=== PATIENT | female | born 1935 | race Caucasian/White ===

== ENCOUNTER 2019-12-11 17:18 | Inpatient (IN) | payer MEDICARE, BC ==
[2019-12-11] MEDS ORDERED: ACETAMINOPHEN TAB 500 MG TAB PO STA (17:30)
[2019-12-11] MEDS ORDERED: DIPH,PERTUS(ACELL)TETVAC-LF 0.5 ML VIAL IM ONE (17:32)
--- NOTE | 2019-12-11 18:04 | ED ---
General Adult HPI - General Chief complaint: Weakness Stated complaint: General weakness Time Seen by Provider: 12/11/19 17:21 Source: patient, EMS, RN notes reviewed Mode of arrival: EMS Limitations: altered mental status - History of Present Illness Initial comments: Patient is a pleasant 84-year-old female presenting to the emergency department with general weakness. Patient has had several falls recently. Patient did get up any breakfast morning however has been in bed fatigued otherwise today. Patient is a poor historian and offers little history. Majority of history is taken by EMS. Per EMS patient has a history of urinary tract infections. Patient has problems identifying specific complaints. Patient did roll out of bed prior to arrival and struck the right side of her face on her nightstand. - Related Data Home Medications Medication Instructions Recorded Confirmed ALPRAZolam [Xanax] 0.25 mg PO BID 05/15/16 05/17/16 Albuterol Sulfate [Proair Hfa] 1 - 2 puff INHALATION Q6HR PRN 05/15/16 05/17/16 Alendronate Sodium [Fosamax] 35 mg PO Q7D 05/15/16 05/17/16 Atorvastatin Calcium [Lipitor] 20 mg PO HS 05/15/16 05/17/16 Calcium Carb-Vit D 500Mg-200Un 1 tab PO DAILY 05/15/16 05/17/16 [Oscal 500+D] Cholecalciferol [Vitamin D3] 2,000 unit PO DAILY 05/15/16 05/17/16 Erythromycin Ophth Oint [Romycin 1 applic BOTH EYES QID PRN 05/15/16 05/17/16 Ophth Oint] Furosemide [Lasix] 40 mg PO DAILY 05/15/16 05/17/16 Ipratropium-Albuterol Nebulize 1 neb INHALATION QID PRN 05/15/16 05/17/16 [Duoneb 0.5 mg-3 mg/3 ml Soln] Metoprolol Tartrate [Lopressor] 50 mg PO BID 05/15/16 05/17/16 Pantoprazole [Protonix] 40 mg PO DAILY 05/15/16 05/17/16 [place] HCl [Salagen] 7.5 mg PO DAILY 05/15/16 05/17/16 Potassium Chloride [K-Tab ER] 20 meq PO DAILY 05/15/16 05/17/16 Propylene Glycol/Peg 400/Pf 1 each OP DAILY 05/15/16 05/17/16 [Systane 0.3-0.4% Eye Drops] Rivaroxaban [Xarelto] 15 mg PO DAILY 05/15/16 05/17/16 Spironolactone [Aldactone] 25 mg PO DAILY 05/15/16 05/17/16 cycloSPORINE [Restasis] 1 applicator BOTH EYES DAILY 05/15/16 05/17/16 prednisoLONE ACETATE 1% OPHTH 1 drops BOTH EYES Q4HR PRN 05/15/16 05/17/16 [Pred Forte 1%] rOPINIRole HCL [Requip] 1 mg PO HS 05/15/16 05/17/16 traMADol HCL [Ultram] 1 tab PO BID 05/15/16 05/17/16 Allergies Allergy/AdvReac Type Severity Reaction Status Date / Time atenolol Allergy Rash/Hives Verified 05/15/16 13:04 bisacodyl Allergy Rash/Hives Verified 05/15/16 13:04 doxycycline Allergy Rash/Hives Verified 05/15/16 13:04 duloxetine HCl Allergy Rash/Hives Verified 05/15/16 13:04 [From Cymbalta] gabapentin Allergy Rash/Hives Verified 05/15/16 13:04 meperidine HCl [From Demerol] Allergy Rash/Hives Verified 05/15/16 13:04 polyethylene glycol 3350 Allergy Rash/Hives Verified 05/15/16 13:04 [From Halflytely-Bisacodyl w-Flav Pk] potassium chloride Allergy Rash/Hives Verified 05/15/16 13:04 [From Halflytely-Bisacodyl w-Flav Pk] prednisone Allergy Rash/Hives Verified 05/15/16 13:04 promethazine HCl Allergy Rash/Hives Verified 05/15/16 13:05 [From Phenergan] propranolol HCl Allergy Rash/Hives Verified 05/15/16 13:05 [From Inderal LA] sertraline HCl [From Zoloft] Allergy Rash/Hives Verified 05/15/16 13:05 sodium bicarbonate Allergy Rash/Hives Verified 05/15/16 13:04 [From Halflytely-Bisacodyl w-Flav Pk] sodium chloride Allergy Rash/Hives Verified 05/15/16 13:04 [From Halflytely-Bisacodyl w-Flav Pk] sulfacetamide Allergy Rash/Hives Verified 05/15/16 13:04 valacyclovir HCl Allergy Rash/Hives Verified 05/15/16 13:05 [From Valtrex] Review of Systems ROS Statement: Those systems with pertinent positive or pertinent negative responses have been documented in the HPI. ROS Other: All systems not noted in ROS Statement are negative. Limitations: ROS unobtainable due to patients medical condition Past Medical History Past Medical History: Atrial Fibrillation, Cancer, COPD, CVA/TIA, Deep Vein Thrombosis (DVT), Fibromyalgia, GERD/Reflux, Hypertension, Osteoarthritis (OA) Additional Past Medical History / Comment(s): Tinea Cruris, Tietze's Disease, Sjogren's Syndrome, Hx of TIA's & DVT. History of Any Multi-Drug Resistant Organisms: None Reported Past Surgical History: Breast Surgery, Section, Joint Replacement, Orthopedic Surgery Additional Past Surgical History / Comment(s): Mitral Valve replacement, Hip Replacement, skin cancer, Arthroscopic Knee surgery, Breast bx. Past Anesthesia/Blood Transfusion Reactions: No Reported Reaction Past Psychological History: No Psychological Hx Reported Smoking Status: Never smoker Past Alcohol Use History: None Reported Past Drug Use History: None Reported - Past Family History Mother Family Medical History: Cancer Additional Family Medical History / Comment(s): Unknown General Exam Limitations: altered mental status General appearance: alert, in no apparent distress Head exam: Present: other (Right-sided facial ecchymosis) Eye exam: Present: normal appearance, PERRL ENT exam: Present: normal oropharynx Neck exam: Present: normal inspection. Absent: tenderness, meningismus Respiratory exam: Present: normal lung sounds bilaterally Cardiovascular Exam: Present: regular rate, normal rhythm GI/Abdominal exam: Present: soft. Absent: tenderness Extremities exam: Present: normal inspection Neurological exam: Present: alert. Absent: motor sensory deficit Expanded Neurological exam: Present: protecting the airway Patient oriented to: Present: person. Absent: place, time Motor strength exam: RUE: 5, LUE: 5, RLE: 5, LLE: 5 Eye Response: (4) open spontaneously Motor Response: (6) obeys commands Verbal Response: (4) confused conversation Psychiatric exam: Present: flat affect Skin exam: Present: normal color Course Vital Signs 12/11/19 12/11/19 12/11/19 17:20 17:51 18:00 Temperature 88.5 F L 89.6 F L Pulse Rate 45 L 43 L 44 L Respiratory 20 20 20 Rate Blood Pressure 146/125 152/88 105/46 O2 Sat by Pulse 99 96 100 Oximetry 12/11/19 19:31 Temperature 91 F L Pulse Rate 46 L Respiratory 20 Rate Blood Pressure 115/53 O2 Sat by Pulse 95 Oximetry EKG Findings - EKG Comments: EKG Findings:: Sinus bradycardia at 46. For screening AV block with [place] of 252. QRS 78. QTC 572. QTC 500. Normal axis. Normal QRS. No acute ST change. Procedures - Laceration Laceration #1 Consent Obtained: verbal consent Indication: laceration Site: eyelid (Right upper eyelid) Size (cm): 3 Description: linear Depth: simple, single layer Pre-repair: wound explored, irrigated extensively Type of Sutures: other (Closed with Dermabond) Medical Decision Making - Medical Decision Making Patient evaluated. Patient and family updated. Case discussed with Dr. Harris, who will admit covered for Dr. Longoria. - Lab Data Result diagrams: 12/11/19 17:49 12/11/19 17:49 Lab Results 12/11/19 12/11/19 12/11/19 Range/Units 17:49 17:49 17:49 WBC 4.4 (3.8-10.6) k/uL RBC 4.53 (3.80-5.40) m/uL Hgb 14.0 (11.4-16.0) gm/dL Hct 42.7 (34.0-46.0) % MCV 94.4 (80.0-100.0) fL MCH 31.0 (25.0-35.0) pg MCHC 32.8 (31.0-37.0) g/dL RDW 13.4 (11.5-15.5) % Plt Count 154 (150-450) k/uL Neutrophils % 65 % Lymphocytes % 20 % Monocytes % 7 % Eosinophils % 2 % Basophils % 3 % Neutrophils # 2.9 (1.3-7.7) k/uL Lymphocytes # 0.9 L (1.0-4.8) k/uL Monocytes # 0.3 (0-1.0) k/uL Eosinophils # 0.1 (0-0.7) k/uL Basophils # 0.1 (0-0.2) k/uL PT (9.0-12.0) sec INR (<1.2) APTT (22.0-30.0) sec Sodium 140 (137-145) mmol/L Potassium 5.3 H (3.5-5.1) mmol/L Chloride 105 (98-107) mmol/L Carbon Dioxide 30 (22-30) mmol/L Anion Gap 5 mmol/L BUN 39 H (7-17) mg/dL Creatinine 1.32 H (0.52-1.04) mg/dL Est GFR (CKD-EPI)AfAm 43 (>60 ml/min/1.73 sqM) Est GFR (CKD-EPI)NonAf 37 (>60 ml/min/1.73 sqM) Glucose 93 (74-99) mg/dL Plasma Lactic Acid Parth 1.2 (0.7-2.0) mmol/L Calcium 9.0 (8.4-10.2) mg/dL Total Bilirubin 0.6 (0.2-1.3) mg/dL AST 81 H (14-36) U/L ALT 93 H (4-34) U/L Alkaline Phosphatase 152 H (38-126) U/L Creatine Kinase 145 H (30-135) U/L Troponin I (0.000-0.034) ng/mL Total Protein 6.8 (6.3-8.2) g/dL Albumin 3.7 (3.5-5.0) g/dL Urine Color Urine Appearance (Clear) Urine pH (5.0-8.0) Ur Specific [place] (1.001-1.035) Urine Protein (Negative) Urine Glucose (UA) (Negative) Urine Ketones (Negative) Urine Blood (Negative) Urine Nitrite (Negative) Urine Bilirubin (Negative) Urine Urobilinogen (<2.0) mg/dL Ur Leukocyte Esterase (Negative) Urine RBC (0-5) /hpf Urine WBC (0-5) /hpf Urine Bacteria (None) /hpf Hyaline Casts (0-2) /lpf 12/11/19 12/11/19 12/11/19 Range/Units 17:49 17:49 18:49 WBC (3.8-10.6) k/uL RBC (3.80-5.40) m/uL Hgb (11.4-16.0) gm/dL Hct (34.0-46.0) % MCV (80.0-100.0) fL MCH (25.0-35.0) pg MCHC (31.0-37.0) g/dL RDW (11.5-15.5) % Plt Count (150-450) k/uL Neutrophils % % Lymphocytes % % Monocytes % % Eosinophils % % Basophils % % Neutrophils # (1.3-7.7) k/uL Lymphocytes # (1.0-4.8) k/uL Monocytes # (0-1.0) k/uL Eosinophils # (0-0.7) k/uL Basophils # (0-0.2) k/uL PT 11.4 (9.0-12.0) sec INR 1.1 (<1.2) APTT 30.4 H (22.0-30.0) sec Sodium (137-145) mmol/L Potassium (3.5-5.1) mmol/L Chloride (98-107) mmol/L Carbon Dioxide (22-30) mmol/L Anion Gap mmol/L BUN (7-17) mg/dL Creatinine (0.52-1.04) mg/dL Est GFR (CKD-EPI)AfAm (>60 ml/min/1.73 sqM) Est GFR (CKD-EPI)NonAf (>60 ml/min/1.73 sqM) Glucose (74-99) mg/dL Plasma Lactic Acid Parth (0.7-2.0) mmol/L Calcium (8.4-10.2) mg/dL Total Bilirubin (0.2-1.3) mg/dL AST (14-36) U/L ALT (4-34) U/L Alkaline Phosphatase (38-126) U/L Creatine Kinase (30-135) U/L Troponin I <0.012 (0.000-0.034) ng/mL Total Protein (6.3-8.2) g/dL Albumin (3.5-5.0) g/dL Urine Color Light Yellow Urine Appearance Clear (Clear) Urine pH 5.5 (5.0-8.0) Ur Specific [place] 1.012 (1.001-1.035) Urine Protein Negative (Negative) Urine Glucose (UA) Negative (Negative) Urine Ketones Negative (Negative) Urine Blood Negative (Negative) Urine Nitrite Positive H (Negative) Urine Bilirubin Negative (Negative) Urine Urobilinogen <2.0 (<2.0) mg/dL Ur Leukocyte Esterase Moderate H (Negative) Urine RBC 1 (0-5) /hpf Urine WBC 33 H (0-5) /hpf Urine Bacteria Rare H (None) /hpf Hyaline Casts 6 H (0-2) /lpf - Radiology Data Radiology results: report reviewed (Scan the brain and cervical spine shows no acute process), image reviewed (Chest x-ray shows no acute process, improvement of previous pleural effusions. X-ray right tib-fib and right hand show no acute process) Disposition Clinical Impression: Dehydration, Urinary tract infection, Eyebrow laceration Disposition: ADMITTED IP TO THIS HOSP Is patient prescribed a controlled substance at d/c from ED?: No Referrals: Jesus Longoria MD [Primary Care Provider] - 1-2 days Decision Time: 19:50
[2019-12-11 18:25] LABS: Basophils # (A) 0.1 k/uL (0-0.2); Basophils % (A) 3 %; Eosinophils # (A) 0.1 k/uL (0-0.7); Eosinophils % (A) 2 %; HCT 42.7 % (34.0-46.0); Lymphocytes # (A) 0.9 k/uL (1.0-4.8); Lymphocytes % (A) 20 %; MCHC 32.8 g/dL (31.0-37.0); MCV 94.4 fL (80.0-100.0); Monocytes # (A) 0.3 k/uL (0-1.0); Monocytes % (A) 7 %; Neutrophils # (A) 2.9 k/uL (1.3-7.7); Neutrophils % (A) 65 %; Platelet Count 154 k/uL (150-450); RBC 4.53 m/uL (3.80-5.40); RDW 13.4 % (11.5-15.5); WBC 4.4 k/uL (3.8-10.6)
[2019-12-11] MEDS ORDERED: TOPICAL SKIN ADHESIVE 1 EACH AMP TOPICAL ONE (18:27)
[2019-12-11 18:37] LABS: INR 1.1 (<1.2); Partial Thromboplastin Time 30.4 sec (22.0-30.0); Prothrombin Time 11.4 sec (9.0-12.0)
[2019-12-11 18:44] LABS: Albumin 3.7 g/dL (3.5-5.0); Potassium 5.3 mmol/L (3.5-5.1); Total Bilirubin 0.6 mg/dL (0.2-1.3); Total Protein 6.8 g/dL (6.3-8.2)
--- NOTE | 2019-12-11 19:10 | CT ---
EXAMINATION TYPE: CT brain susanne wo con DATE OF EXAM: 12/11/2019 COMPARISON: CT brain 04/23/2013 HISTORY: Falls. Headache. Neck pain. CT DLP: 1397.1 mGycm Automated exposure control for dose reduction was used. Multiple axial sections were obtained of the brain without contrast. Multiple axial sections were obt ained from the skull base to T1 vertebra without contrast. FINDINGS: There is cerebral cortical atrophy. There is no mass effect nor midline shift. There is no sign of in tracranial hemorrhage. The calvarium is intact. There is no evidence of cerebral edema. The cervical vertebra show disc space narrowing from C3 to C7 with spurring of the endplates. Facet j oints are intact. There is no compression fracture. The skull base is intact. IMPRESSION: Multilevel spondylotic changes in the cervical spine. No fracture. Cerebral atrophy. No acute intracranial abnormality. No significant change compared to old exam.
--- NOTE | 2019-12-11 19:12 | XR ---
EXAMINATION TYPE: XR hand complete RT DATE OF EXAM: 12/11/2019 COMPARISON: NONE HISTORY: Pain TECHNIQUE: 3 views FINDINGS: Metacarpals are intact. I see no fracture nor dislocation. There is extensive hypertrophic osteoarthritis in the IP joints of all of the digits. The carpal bones are intact. There is narrowing of the radiocarpal joint space. I see no fracture. There is no subluxation. There are no erosions. IMPRESSION: Multiple areas of osteoarthritis. No definite sign of inflammatory arthritis. No acute pratibha ny abnormality.
--- NOTE | 2019-12-11 19:14 | XR ---
EXAMINATION TYPE: XR tibia fibula RT DATE OF EXAM: 12/11/2019 COMPARISON: NONE HISTORY: Pain TECHNIQUE: 3 views FINDINGS: There is subcutaneous edema around the lower leg. Tibia and fibula appear intact. I see no definite fracture. There is slight irregular appearance of the medial tibial condyle on the frontal v iew. IMPRESSION: No displaced fracture seen. Medial tibial condyle fracture cannot be entirely excluded. K nee x-rays would be helpful for for evaluation if clinically indicated. Subcutaneous edema.
[2019-12-11] MEDS ORDERED: ACETAMINOPHEN SUPPOSITORY 650 MG SUPP RECTAL STA (19:15)
[2019-12-11] MEDS: SODIUM CHLORIDE 0.9% 1,000 ML IV SCH (19:20)
[2019-12-11 19:23] LABS: Appearance,Urine Clear (Clear); Bacteria,Urine Rare /hpf; Bilirubin,Urine Negative (Negative); Blood,Urine Negative (Negative); Color,Urine Light Yellow; Glucose,Urine (UA) Negative (Negative); Hyaline Casts,Urine 6 /lpf (0-2); Ketones,Urine Negative (Negative); Leukocyte Esterase,Urine Moderate (Negative); Nitrite,Urine Positive (Negative); PH, Urine 5.5 (5.0-8.0); Protein,Urine Negative (Negative); RBC,Urine 1 /hpf (0-5); Specific Gravity,Urine 1.012 (1.001-1.035); Urobilinogen,Urine <2.0 mg/dL (<2.0); WBC,Urine 33 /hpf (0-5)
--- NOTE | 2019-12-11 19:23 | XR ---
EXAMINATION TYPE: XR chest 2V DATE OF EXAM: 12/11/2019 COMPARISON: 05/05/2013 HISTORY: Fever TECHNIQUE: FINDINGS: There are sternal wires. There is coarse interstitial density in the lungs. There is slight blunting of the costophrenic angles. There is no pulmonary consolidation. IMPRESSION: There is improvement in the pleural effusions compared to last exam that could relate to some improvement of mild heart failure. No pulmonary consolidation. There could be very minimal heart failure.
[2019-12-11] MEDS ORDERED: NALOXONE 0.4 MG/ML 1 ML VIAL IV PRN (20:12)
[2019-12-11] MEDS ORDERED: ACETAMINOPHEN TAB 325 MG TAB PO PRN (20:12)
[2019-12-12] MEDS: SODIUM CHLORIDE 0.9% 1,000 ML IV SCH ×2 (03:29→08:49)
[2019-12-12 06:07] LABS: Basophils % (A) 0 %; Eosinophils % (A) 1 %; HGB 12.8 gm/dL (11.4-16.0); Lymphocytes # (A) 0.5 k/uL (1.0-4.8); Lymphocytes % (A) 7 %; MCH 30.7 pg (25.0-35.0); MCHC 32.7 g/dL (31.0-37.0); Mean Platelet Volume 9.1; Monocytes # (A) 0.4 k/uL (0-1.0); Monocytes % (A) 5 %; Neutrophils # (A) 5.7 k/uL (1.3-7.7); Neutrophils % (A) 86 %; Platelet Count 142 k/uL (150-450); RBC 4.15 m/uL (3.80-5.40); WBC 6.7 k/uL (3.8-10.6)
[2019-12-12 06:30] LABS: Albumin 3.2 g/dL (3.5-5.0); Calcium 8.2 mg/dL (8.4-10.2); Potassium 4.7 mmol/L (3.5-5.1); Total Bilirubin 0.5 mg/dL (0.2-1.3); Total Protein 6.2 g/dL (6.3-8.2)
[2019-12-12] MEDS ORDERED: NYSTATIN 100,000UNIT/GM CREAM 30 GM TUBE TOPICAL PRN (11:49)
[2019-12-12] MEDS ORDERED: ALBUTEROL INHALER 60 PUFF/8 GM INHALER INHALATION PRN (11:49)
[2019-12-12] MEDS ORDERED: IPRATROPIUM-ALBUTEROL 3 ML NEB INHALATION PRN (11:49)
[2019-12-12] MEDS ORDERED: FUROSEMIDE 40 MG TAB PO SCH (12:00)
[2019-12-12] MEDS ORDERED: POTASSIUM CHLORIDE ER 20 MEQ TAB.ER PO SCH (12:00)
[2019-12-12] MEDS ORDERED: SPIRONOLACTONE 25 MG TAB PO SCH (12:00)
[2019-12-12] MEDS: METOPROLOL TARTRATE 50 MG TAB PO SCH ×2 (12:37→21:57)
[2019-12-12] MEDS: CITALOPRAM HYDROBROMIDE 20 MG TAB PO SCH (12:37)
[2019-12-12] MEDS: CALCIUM CARB-VIT D 500MG-200UN 1 EACH TAB PO SCH (12:38)
--- NOTE | 2019-12-12 15:22 | P.HPIM ---
History of Present Illness H&P Date: 12/12/19 Chief Complaint: Falls History of presenting complaint: This is a pleasant 89-year-old patient of Dr. Longoria. history is hoping by the daughter the bedside. Because of dementia patient is a limited historian. Chronic stable medical conditions include atrial fibrillation, COPD, fibromyalgia, hypertension, osteoarthritis, Sjogren syndrome. Patient lives with her daughter and son-in-law. Has of advanced dementia. Able to feed herself. Patient is incontinent. Able to get around the house. Recently is becoming more unsteady. Patient also had long-standing tremors. Patient may quite often gets agitated. Yesterday patient fell at least to 3 times. Including yesterday she took a fall when she hit the nightstand injuring her right forehead and eyelid and periorbital bruising occurred. Patient also got bruising on her hands. Patient's temperature also was running low. Was slightly bradycardic. Patient's found to be UTI the ER started and IV ceftriaxone. Patient was hypothermic. Patient always feels a bit cold. Patient is Dr. Sheridan is present Review of systems: GEN.: Tired EYES: Bruising around the right eye HEENT: None NECK: None RESPIRATORY: None CARDIOVASCULAR: None GASTROINTESTINAL: Incontinent GENITOURINARY: Incontinent MUSCULOSKELETAL: Joint pains LYMPHATICS: None HEMATOLOGICAL: None PSYCHIATRY: [Forgetful NEUROLOGICAL: Tremors.. Social history: No history of smoking. Drinks at also point daily. Lives with her daughter Arvin and her . Physical examination: VITAL SIGNS: Temperature 88.5, heart rate 45, respiration 20, blood pressure 1 46 x 1 25, 99% percent room air GENERAL: BMI 31.6, laying in bed. EYES: Pupils equal. Conjunctiva alannah, bruising around the right eye, with superficial laceration over the right eyelid l. HEENT: External appearance of nose and ears normal, oral cavity grossly normal. NECK: JVD unable to assess; masses not palpable. HEART: First and second heart sounds are normal; no edema. LUNGS: Respiratory rate normal; decreased breath sounds. ABDOMEN: Soft, nontender, liver spleen not palpable, no masses palpable. PSYCH: [Patient's lipid also simple questions l. NEUROLOGICAL: Cranial nerves grossly intact; no facial asymmetry, power and sensation grossly intact. Tremors at rest of present, including that of the body of the head LYMPHATICS: No lymph nodes palpable in the axilla and neck ABDOMEN: Bruising of the lower extremity the hands the face INVESTIGATIONS, reviewed in the clinical context: White count 6.7 hemoglobin 12.8 potassium 5.3 bun 39 crit 1.3 to UA positive for leukoesterase WBC EKG-sinus rhythm first-degree heart block heart rate 46 Chest x-ray film personally reviewed by me-cardiomegaly and increased of chronic lung changes Computed tomography scan of the head cervical spine, had x-ray, tibia-fibula, no obvious fractures reported Assessment: -Hypothermia from underlying UTI -Acute UTI from cystitis, causing low temperature and possible sepsis -Right perioral, bruising from fall and trauma -Chronic essential tremor could be due to falls -Major cognitive impairment from underlying late onset Alzheimer's dementia -Renal failure cannot rule out a chronic component at this point -Chronic gait dysfunction with a contribution from tremors -Hyperkalemia in the setting of renal failure -COPD -Chronic fibromyalgia -Essential hypertension -Primary osteoarthritis -Sjogren syndrome CODE STATUS DO NOT RESUSCITATE Plan: This story and IV ceftriaxone IV fluids. Patient diuretics and potassium supplement tubing disconnected. Other home medications were continued. Fall precautions in place. Did have a lengthy discussion with the patient's daug hter. Patient will probably need long-term placement. They have already started looking at the same.. Both case assistant and clinical social work aide report. Past Medical History Past Medical History: Atrial Fibrillation, Cancer, COPD, CVA/TIA, Deep Vein Thrombosis (DVT), Fibromyalgia, Hypertension, Osteoarthritis (OA) Additional Past Medical History / Comment(s): Tinea Cruris, Tietze's Disease, Sjogren's Syndrome, Hx of TIA's & DVT. History of Any Multi-Drug Resistant Organisms: None Reported Past Surgical History: Breast Surgery, Section, Joint Replacement, Orthopedic Surgery Additional Past Surgical History / Comment(s): Mitral Valve replacement, Hip Replacement, skin cancer, Arthroscopic Knee surgery, Breast bx. Past Anesthesia/Blood Transfusion Reactions: No Reported Reaction Past Psychological History: No Psychological Hx Reported Smoking Status: Never smoker Past Alcohol Use History: None Reported Additional Past Alcohol Use History / Comment(s): Drinks one glass of wine daily. Past Drug Use History: None Reported - Past Family History Mother Family Medical History: Cancer Additional Family Medical History / Comment(s): Unknown Medications and Allergies Home Medications Medication Instructions Recorded Confirmed Type Albuterol Sulfate [Proair Hfa] 2 puff INHALATION RT-Q6H PRN 05/15/16 12/11/19 History Atorvastatin Calcium [Lipitor] 20 mg PO HS 05/15/16 12/11/19 History Calcium Carb-Vit D 500Mg-200Un 1 tab PO DAILY 05/15/16 12/11/19 History [Oscal 500+D] Cholecalciferol [Vitamin D3] 2,000 unit PO DAILY 05/15/16 12/11/19 History Furosemide [Lasix] 40 mg PO DAILY 05/15/16 12/11/19 History Ipratropium-Albuterol Nebulize 3 ml INHALATION RT-QID PRN 05/15/16 12/11/19 History [Duoneb 0.5 mg-3 mg/3 ml Soln] Metoprolol Tartrate [Lopressor] 50 mg PO BID 05/15/16 12/11/19 History Potassium Chloride [K-Tab ER] 20 meq PO DAILY 05/15/16 12/11/19 History Rivaroxaban [Xarelto] 15 mg PO PC-SUPPER 05/15/16 12/11/19 History Spironolactone [Aldactone] 25 mg PO DAILY 05/15/16 12/11/19 History rOPINIRole HCL [Requip] 1 mg PO HS 05/15/16 12/11/19 History traMADol HCL [Ultram] 50 mg PO TID 05/15/16 12/11/19 History ALPRAZolam [Xanax] 0.5 mg PO AC-SUPPER 12/11/19 12/11/19 History ALPRAZolam [Xanax] 1 mg PO HS 12/11/19 12/11/19 History Citalopram Hydrobromide 20 mg PO DAILY 12/11/19 12/11/19 History [Citalopram HBr] Donepezil 23mg 23 mg PO HS 12/11/19 12/11/19 History Nystatin 100,000Unit/gm Cream 1 applic TOPICAL DAILY PRN 12/11/19 12/11/19 History [Mycostatin Cream] Allergies Allergy/AdvReac Type Severity Reaction Status Date / Time atenolol Allergy Rash/Hives Verified 12/11/19 21:01 bisacodyl Allergy Rash/Hives Verified 12/11/19 21:01 doxycycline Allergy Rash/Hives Verified 12/11/19 21:01 duloxetine HCl Allergy Rash/Hives Verified 12/11/19 21:01 [From Cymbalta] gabapentin Allergy Rash/Hives Verified 12/11/19 21:01 meperidine HCl [From Demerol] Allergy Rash/Hives Verified 12/11/19 21:01 polyethylene glycol 3350 Allergy Rash/Hives Verified 12/11/19 21:01 [From Halflytely-Bisacodyl w-Flav Pk] potassium chloride Allergy Rash/Hives Verified 12/11/19 21:01 [From Halflytely-Bisacodyl w-Flav Pk] prednisone Allergy Rash/Hives Verified 12/11/19 21:01 promethazine HCl Allergy Rash/Hives Verified 12/11/19 21:01 [From Phenergan] propranolol HCl Allergy Rash/Hives Verified 12/11/19 21:01 [From Inderal LA] sertraline HCl [From Zoloft] Allergy Rash/Hives Verified 12/11/19 21:01 sodium bicarbonate Allergy Rash/Hives Verified 12/11/19 21:01 [From Halflytely-Bisacodyl w-Flav Pk] sodium chloride Allergy Rash/Hives Verified 12/11/19 21:01 [From Halflytely-Bisacodyl w-Flav Pk] sulfacetamide Allergy Rash/Hives Verified 12/11/19 21:01 valacyclovir HCl Allergy Rash/Hives Verified 12/11/19 21:01 [From Valtrex] Physical Exam Vitals: Vital Signs Temp Pulse Pulse Pulse Resp BP BP 12/12/19 08:00 97.9 F 103 H 18 142/62 12/12/19 05:10 98 F 12/12/19 03:40 97.4 F L 108 H 20 173/75 12/12/19 00:00 93.4 F L 83 18 129/60 12/11/19 21:27 92 F L 50 L 20 111/68 12/11/19 21:15 90.5 F L 74 18 166/77 12/11/19 21:12 92 F L 50 L 20 100/50 12/11/19 20:00 91 F L 48 L 20 109/49 12/11/19 19:31 91 F L 46 L 20 115/53 12/11/19 18:00 44 L 20 105/46 12/11/19 17:51 89.6 F L 43 L 20 152/88 12/11/19 17:45 48 L 12/11/19 17:20 88.5 F L 45 L 20 146/125 Pulse Ox 12/12/19 08:00 94 L 12/12/19 05:10 12/12/19 03:40 95 12/12/19 00:00 92 L 12/11/19 21:27 98 12/11/19 21:15 95 12/11/19 21:12 98 12/11/19 20:00 100 12/11/19 19:31 95 12/11/19 18:00 100 12/11/19 17:51 96 12/11/19 17:45 12/11/19 17:20 99 Intake and Output 12/11/19 12/12/19 12/12/19 22:59 06:59 14:59 Output Total 200 Balance -200 Output: Urine 200 Other: Weight 67.132 kg 73.5 kg Results CBC & Chem 7: 12/12/19 05:35 12/12/19 05:35 Labs: Abnormal Lab Results - Last 24 Hours (Table) 12/11/19 12/11/19 12/11/19 Range/Units 17:49 17:49 17:49 Plt Count (150-450) k/uL Lymphocytes # 0.9 L (1.0-4.8) k/uL APTT 30.4 H (22.0-30.0) sec Potassium 5.3 H (3.5-5.1) mmol/L Chloride (98-107) mmol/L BUN 39 H (7-17) mg/dL Creatinine 1.32 H (0.52-1.04) mg/dL Calcium (8.4-10.2) mg/dL AST 81 H (14-36) U/L ALT 93 H (4-34) U/L Alkaline Phosphatase 152 H (38-126) U/L Creatine Kinase 145 H (30-135) U/L Total Protein (6.3-8.2) g/dL Albumin (3.5-5.0) g/dL Urine Nitrite (Negative) Ur Leukocyte Esterase (Negative) Urine WBC (0-5) /hpf Urine Bacteria (None) /hpf Hyaline Casts (0-2) /lpf 12/11/19 12/12/19 12/12/19 Range/Units 18:49 05:35 05:35 Plt Count 142 L (150-450) k/uL Lymphocytes # 0.5 L (1.0-4.8) k/uL APTT (22.0-30.0) sec Potassium (3.5-5.1) mmol/L Chloride 110 H (98-107) mmol/L BUN 33 H (7-17) mg/dL Creatinine 1.33 H (0.52-1.04) mg/dL Calcium 8.2 L (8.4-10.2) mg/dL AST 67 H (14-36) U/L ALT 74 H (4-34) U/L Alkaline Phosphatase 151 H (38-126) U/L Creatine Kinase (30-135) U/L Total Protein 6.2 L (6.3-8.2) g/dL Albumin 3.2 L (3.5-5.0) g/dL Urine Nitrite Positive H (Negative) Ur Leukocyte Esterase Moderate H (Negative) Urine WBC 33 H (0-5) /hpf Urine Bacteria Rare H (None) /hpf Hyaline Casts 6 H (0-2) /lpf Microbiology - Last 24 Hours (Table) 12/11/19 18:49 Urine Culture - Preliminary Urine,Voided Thrombosis Risk Factor Assmnt - Choose All That Apply Each Factor Represents 1 point: Obesity (BMI >25) Each Risk Factor Represents 3 Points: Age 75 years or older Thrombosis Risk Factor Assessment Total Risk Factor Score: 4 Thrombosis Risk Factor Assessment Level: Moderate Risk
[2019-12-12] MEDS: traMADol 50 MG TAB PO SCH ×2 (16:42→21:57)
[2019-12-12] MEDS: ALPRAZolam 0.5 MG TAB PO SCH (16:42)
[2019-12-12] MEDS: LACTATED RINGERS 1,000 ML IV SCH (16:44)
[2019-12-12] MEDS: ENOXAPARIN 30 MG/0.3 ML SYRINGE SQ SCH (16:52)
[2019-12-12] MEDS ORDERED: DONEPEZIL 10 MG TAB PO SCH (21:00)
[2019-12-12] MEDS: ALPRAZolam 1 MG TAB PO SCH (21:57)
[2019-12-12] MEDS: ATORVASTATIN 20 MG TAB PO SCH (21:57)
[2019-12-12] MEDS ORDERED: HALOPERIDOL LACTATE 5 MG/ML 1 ML VIAL IM PRN (22:55)
[2019-12-13] MEDS: LACTATED RINGERS 1,000 ML IV SCH ×3 (02:52→22:59)
[2019-12-13 06:32] LABS: Calcium 8.1 mg/dL (8.4-10.2); Potassium 4.1 mmol/L (3.5-5.1)
[2019-12-13 06:38] LABS: Glucose,Whole Blood 59 mg/dL (75-99)
[2019-12-13] MEDS ORDERED: DEXTROSE 10 % IN WATER 250 ML IV ONE (06:39)
[2019-12-13 06:52] LABS: Glucose,Whole Blood 110 mg/dL (75-99)
[2019-12-13] MEDS: traMADol 50 MG TAB PO SCH ×3 (09:45→19:57)
[2019-12-13] MEDS: ENOXAPARIN 30 MG/0.3 ML SYRINGE SQ SCH (09:45)
[2019-12-13] MEDS: CALCIUM CARB-VIT D 500MG-200UN 1 EACH TAB PO SCH ×2 (09:46→10:05)
[2019-12-13] MEDS: CITALOPRAM HYDROBROMIDE 20 MG TAB PO SCH ×2 (09:46→10:05)
[2019-12-13] MEDS: METOPROLOL TARTRATE 50 MG TAB PO SCH ×2 (09:46→19:56)
[2019-12-13] MEDS: CHOLECALCIFEROL 1,000 UNIT TAB PO SCH (10:04)
[2019-12-13 11:06] VITALS: BMI 29.0
[2019-12-13] MEDS: ALPRAZolam 0.5 MG TAB PO SCH (18:04)
[2019-12-13] MEDS: ALPRAZolam 1 MG TAB PO SCH (19:56)
[2019-12-13] MEDS: ATORVASTATIN 20 MG TAB PO SCH (20:00)
--- NOTE | 2019-12-13 20:36 | P.PN ---
Progress Note - Text Progress Note Date: 12/13/19 Chief Complaint: Falls History of presenting complaint: This is a pleasant 89-year-old patient of Dr. Longoria. history is hoping by the daughter the bedside. Because of dementia patient is a limited historian. Chronic stable medical conditions include atrial fibrillation, COPD, fibromyalgia, hypertension, osteoarthritis, Sjogren syndrome. Patient lives with her daughter and son-in-law. Has of advanced dementia. Able to feed herself. Patient is incontinent. Able to get around the house. Recently is becoming more unsteady. Patient also had long-standing tremors. Patient may quite often gets agitated. Yesterday patient fell at least to 3 times. Includ ing yesterday she took a fall when she hit the nightstand injuring her right forehead and eyelid and periorbital bruising occurred. Patient also got bruising on her hands. Patient's temperature also was running low. Was slightly bradycardic. Patient's found to be UTI the ER started and IV ceftriaxone. Patient was hypothermic. Patient always feels a bit cold. Patient daughter Arvin is present Today- yesterday patient got a bit delirious and agitated. Patient ate about 75-100% of her lunch and dinner. Review of systems: Was done for constitutional, cardiovascular, GI, pulmonary. relevant finding as above Active Medications Acetaminophen (Tylenol Tab) 650 mg PO Q6HR PRN PRN Reason: Mild Pain or Fever > 100.5 Albuterol/Ipratropium (Duoneb 0.5 Mg-3 Mg/3 Ml Soln) 3 ml INHALATION RT-QID PRN PRN Reason: Shortness Of Breath Alprazolam (Xanax) 0.5 mg PO AC-SUPPER [facility] Last Admin: 12/13/19 18:04 Dose: 0.5 mg Documented by: Alprazolam (Xanax) 1 mg PO [facility] Last Admin: 12/13/19 19:56 Dose: 1 mg Documented by: Atorvastatin Calcium (Lipitor) 20 mg PO [facility] Last Admin: 12/13/19 20:00 Dose: Not Given Documented by: Calcium Carbonate (Oscal 500+D) 1 each PO DAILY [facility] Last Admin: 12/13/19 10:05 Dose: Not Given Documented by: Cholecalciferol (Vitamin D3 (25 Mcg = 1000 Iu)) 2,000 unit PO DAILY [facility] Last Admin: 12/13/19 10:04 Dose: Not Given Documented by: Citalopram Hydrobromide (Celexa) 20 mg PO DAILY [facility] Last Admin: 12/13/19 10:05 Dose: Not Given Documented by: Enoxaparin Sodium (Lovenox) 30 mg SQ DAILY [facility] Last Admin: 12/13/19 09:45 Dose: 30 mg Documented by: Haloperidol Lactate (Haldol) 2.5 mg IM Q4HR PRN PRN Reason: Agitation or Acute Psychosis Last Admin: 12/12/19 23:19 Dose: 2.5 mg Documented by: Ceftriaxone Sodium 1 gm/ (Sodium Chloride) 50 mls @ 100 mls/hr IVPB Q12HR [facility] Last Admin: 12/13/19 20:00 Dose: 100 mls/hr Documented by: Lactated Ringer's (Lactated Ringers) 1,000 mls @ 100 mls/hr IV .Q10H [facility] Last Admin: 12/13/19 11:58 Dose: 100 mls/hr Documented by: Metoprolol Tartrate (Lopressor) 50 mg PO BID [facility] Last Admin: 12/13/19 19:56 Dose: 50 mg Documented by: Naloxone HCl (Narcan) 0.2 mg IV Q2M PRN PRN Reason: Opioid Reversal Nystatin (Mycostatin Cream) 1 applic TOPICAL DAILY PRN PRN Reason: Rash Ropinirole HCl (Requip) 1 mg PO HS [facility] Last Admin: 12/13/19 20:00 Dose: Not Given Documented by: Tramadol HCl (Ultram) 50 mg PO TID [facility] Last Admin: 12/13/19 19:57 Dose: 50 mg Documented by: Physical examination: VITAL SIGNS: 98.2, 92, 18, 143/65, 92% room air GENERAL: Laying in bed, awake EYES: Pupils equal. Conjunctiva alannah, bruising around the right eye, with superficial laceration over the right eyelid HEENT: External appearance of nose and ears normal, oral cavity grossly normal. NECK: JVD unable to assess; masses not palpable. HEART: First and second heart sounds are normal; no edema. LUNGS: Respiratory rate normal; decreased breath sounds. ABDOMEN: Soft, nontender, liver spleen not palpable, no masses palpable. PSYCH: Ounces occasional questions NEUROLOGICAL: Cranial nerves grossly intact; no facial asymmetry, power and sensation grossly intact. Tremors at rest of present, including that of the body and head ABDOMEN: Bruising of the lower extremity the hands the face INVESTIGATIONS, reviewed in the clinical context: Potassium 4.1 bun 27 creatinine 1.38 Previous testing White count 6.7 hemoglobin 12.8 potassium 5.3 bun 39 crit 1.3 to UA positive for leukoesterase WBC EKG-sinus rhythm first-degree heart block heart rate 46 Chest x-ray film personally reviewed by me-cardiomegaly and increased of chronic lung changes Computed tomography scan of the head cervical spine, had x-ray, tibia-fibula, no obvious fractures reported Assessment: -Hypothermia from underlying UTI, improved -Acute UTI from cystitis, causing low temperature and possible sepsis -Right wilder-orbital, bruising from fall and trauma -Chronic essential tremor could be due to falls -Major cognitive impairment from underlying late onset Alzheimer's dementia -Renal failure cannot rule out a chronic component at this point -Chronic gait dysfunction with a contribution from tremors -Hyperkalemia in the setting of renal failure -COPD -Chronic fibromyalgia -Essential hypertension -Primary osteoarthritis -Sjogren syndrome CODE STATUS DO NOT RESUSCITATE Plan: Continue with IV fluids. Repeat renal function the morning. We will add a small dose of Seroquel at night.
[2019-12-13] MEDS: QUEtiapine 25 MG TAB PO SCH (22:59)
[2019-12-13] MEDS: CEPHALEXIN 250 MG CAP PO SCH (23:00)
[2019-12-14 07:03] LABS: Calcium 8.2 mg/dL (8.4-10.2)
[2019-12-14 07:14] LABS: Potassium 4.6 mmol/L (3.5-5.1)
[2019-12-14] MEDS: METOPROLOL TARTRATE 50 MG TAB PO SCH ×2 (09:57→20:35)
[2019-12-14] MEDS: traMADol 50 MG TAB PO SCH ×3 (09:58→20:35)
[2019-12-14] MEDS: CALCIUM CARB-VIT D 500MG-200UN 1 EACH TAB PO SCH (09:59)
[2019-12-14] MEDS: CHOLECALCIFEROL 1,000 UNIT TAB PO SCH (09:59)
[2019-12-14] MEDS: CEPHALEXIN 250 MG CAP PO SCH ×3 (09:59→20:37)
[2019-12-14] MEDS: ENOXAPARIN 30 MG/0.3 ML SYRINGE SQ SCH (10:02)
[2019-12-14] MEDS: LACTATED RINGERS 1,000 ML IV SCH ×2 (11:07→12:22)
[2019-12-14] MEDS: ALPRAZolam 0.5 MG TAB PO SCH (17:46)
[2019-12-14] MEDS: ALPRAZolam 1 MG TAB PO SCH (20:35)
[2019-12-14] MEDS: ATORVASTATIN 20 MG TAB PO SCH (20:35)
--- NOTE | 2019-12-14 22:23 | P.PN ---
Progress Note - Text Progress Note Date: 12/14/19 Chief Complaint: Falls History of presenting complaint: This is a pleasant 89-year-old patient of Dr. Longoria. history is hoping by the daughter the bedside. Because of dementia patient is a limited historian. Chronic stable medical conditions include atrial fibrillation, COPD, fibromyalgia, hypertension, osteoarthritis, Sjogren syndrome. Patient lives with her daughter and son-in-law. Has of advanced dementia. Able to feed herself. Patient is incontinent. Able to get around the house. Recently is becoming more unsteady. Patient also had long-standing tremors. Patient may quite often gets agitated. Yesterday patient fell at least to 3 times. Includ ing yesterday she took a fall when she hit the nightstand injuring her right forehead and eyelid and periorbital bruising occurred. Patient also got bruising on her hands. Patient's temperature also was running low. Was slightly bradycardic. Patient's found to be UTI the ER started and IV ceftriaxone. Patient was hypothermic. Patient always feels a bit cold. Patient daughter Arvin is present. Small dose of Seroquel was added at night. Patient did better with that. Today- sitting up in a chair. Tolerate some diet. No new issues. Breathing stable.. Review of systems: Was done for constitutional, cardiovascular, GI, pulmonary. relevant finding as above Active Medications Acetaminophen (Tylenol Tab) 650 mg PO Q6HR PRN PRN Reason: Mild Pain or Fever > 100.5 Albuterol/Ipratropium (Duoneb 0.5 Mg-3 Mg/3 Ml Soln) 3 ml INHALATION RT-QID PRN PRN Reason: Shortness Of Breath Alprazolam (Xanax) 0.5 mg PO AC-SUPPER [facility] Last Admin: 12/14/19 17:46 Dose: 0.5 mg Documented by: Alprazolam (Xanax) 1 mg PO [facility] Last Admin: 12/14/19 20:35 Dose: 1 mg Documented by: Atorvastatin Calcium (Lipitor) 20 mg PO [facility] Last Admin: 12/14/19 20:35 Dose: 20 mg Documented by: Calcium Carbonate (Oscal 500+D) 1 each PO DAILY [facility] Last Admin: 12/14/19 09:59 Dose: 1 each Documented by: Cephalexin (Keflex) 250 mg PO TID [facility] Last Admin: 12/14/19 20:37 Dose: 250 mg Documented by: Cholecalciferol (Vitamin D3 (25 Mcg = 1000 Iu)) 2,000 unit PO DAILY [facility] Last Admin: 12/14/19 09:59 Dose: 2,000 unit Documented by: Enoxaparin Sodium (Lovenox) 30 mg SQ DAILY [facility] Last Admin: 12/14/19 10:02 Dose: 30 mg Documented by: Haloperidol Lactate (Haldol) 2.5 mg IM Q4HR PRN PRN Reason: Agitation or Acute Psychosis Last Admin: 12/12/19 23:19 Dose: 2.5 mg Documented by: Metoprolol Tartrate (Lopressor) 50 mg PO BID [facility] Last Admin: 12/14/19 20:35 Dose: 50 mg Documented by: Naloxone HCl (Narcan) 0.2 mg IV Q2M PRN PRN Reason: Opioid Reversal Nystatin (Mycostatin Cream) 1 applic TOPICAL DAILY PRN PRN Reason: Rash Quetiapine Fumarate (Seroquel) 25 mg PO HS [facility] Last Admin: 12/13/19 22:59 Dose: Not Given Documented by: Ropinirole HCl (Requip) 1 mg PO HS [facility] Last Admin: 12/14/19 20:35 Dose: 1 mg Documented by: Tramadol HCl (Ultram) 50 mg PO TID [facility] Last Admin: 12/14/19 20:35 Dose: 50 mg Documented by: Physical examination: VITAL SIGNS: 97.6, 77, 16, and 47/77, and 6% room air GENERAL: Sitting on a chair, awake EYES: Pupils equal. Conjunctiva alannah, bruising around the right eye, with superficial laceration over the right eyelid HEENT: External appearance of nose and ears normal, oral cavity grossly normal. NECK: JVD unable to assess; masses not palpable. HEART: First and second heart sounds are normal; no edema. LUNGS: Respiratory rate normal; decreased breath sounds. ABDOMEN: Soft, nontender, liver spleen not palpable, no masses palpable. PSYCH: Answering simple questions NEUROLOGICAL: Cranial nerves grossly intact; no facial asymmetry, power and sensation grossly intact. Tremors at rest of present, including that of the body and head ABDOMEN: Bruising of the lower extremity the hands the face INVESTIGATIONS, reviewed in the clinical context: Potassium 4.6 bun 27 creatinine 1.25 Previous testing White count 6.7 hemoglobin 12.8 potassium 5.3 bun 39 crit 1.3 to UA positive for leukoesterase WBC EKG-sinus rhythm first-degree heart block heart rate 46 Chest x-ray film personally reviewed by me-cardiomegaly and increased of chronic lung changes Computed tomography scan of the head cervical spine, had x-ray, tibia-fibula, no obvious fractures reported Urine culture-acute colitis Assessment: -Hypothermia from underlying UTI, improved -Acute UTI from cystitis, probably E. coli, causing low temperature and possible sepsis -Right wilder-orbital, bruising from fall and trauma -Chronic essential tremor could be due to falls -Major cognitive impairment from underlying late onset Alzheimer's dementia -Renal failure cannot rule out a chronic component at this point -Chronic gait dysfunction with a contribution from tremors -Hyperkalemia in the setting of renal failure -COPD -Chronic fibromyalgia -Essential hypertension -Primary osteoarthritis -Sjogren syndrome CODE STATUS DO NOT RESUSCITATE Plan: Continue with IV fluids. Patient responded well to Seroquel. vault worker informed me that patient Will have her place of the [facility] tomorrow. Clinically patient did better. Repeat BMP in the morning..
[2019-12-15] MEDS: QUEtiapine 25 MG TAB PO SCH (03:03)
[2019-12-15 06:55] VITALS: BP 131/69; PULSE 74; RESP 24; TEMP 97.5
[2019-12-15] MEDS: ENOXAPARIN 30 MG/0.3 ML SYRINGE SQ SCH (08:12)
[2019-12-15] MEDS: CHOLECALCIFEROL 1,000 UNIT TAB PO SCH (08:12)
[2019-12-15] MEDS: METOPROLOL TARTRATE 50 MG TAB PO SCH (08:12)
[2019-12-15] MEDS: CALCIUM CARB-VIT D 500MG-200UN 1 EACH TAB PO SCH (08:12)
[2019-12-15] MEDS: traMADol 50 MG TAB PO SCH (08:12)
[2019-12-15] MEDS: CEPHALEXIN 250 MG CAP PO SCH (08:13)
[2019-12-15 09:13] LABS: Calcium 8.6 mg/dL (8.4-10.2); Potassium 4.1 mmol/L (3.5-5.1)
--- NOTE | 2019-12-16 00:39 | P.DS ---
Providers Date of admission: 12/11/19 20:12 Expected date of discharge: 12/15/19 Attending physician: Spencer Moy Primary care physician: Jacob Longoria [facility] Course: Chief Complaint: Falls Hospital course: pleasant 89-year-old patient of Dr. Longoria. history is obtained from the daughterhead the bedside. Because of dementia patient is a limited historian. Chronic stable medical conditions include atrial fibrillation, COPD, fibromyalgia, hypertension, osteoarthritis, Sjogren syndrome. Patient lives with her daughter and son-in-law. Has advanced dementia. Able to feed herself. Patient is incontinent. Able to get around the house. Recently is becoming more unsteady. Patient also had long-standing tremors. Patient may quite often gets agitated. Yesterday patient fell at least to 3 times. Including yesterday she took a fall when she hit the nightstand injuring her right forehead and eyelid and periorbital bruising occurred. Patient also got bruising on her hands. Patient's temperature also was running low. Was slightly bradycardic. Patient's found to be UTI the ER started and IV ceftriaxone. Patient was hypothermic. Patient always feels a bit cold. Patient daughter Arvin is present. Small dose of Seroquel was added at night. Patient did better with that. Today-stable. No new issues.tolerating a diet. Given her age and comorbidities. Prognosis guarded. discussed with case management coordinator. Discussion and discharge planning more than 35 minutes Physical examination: VITAL SIGNS: 97.5, 74, 24, 131/69, 93% on room air GENERAL: Sitting on a chair, awake EYES: Pupils equal. Conjunctiva alannah, bruising around the right eye, with superficial laceration over the right eyelid HEENT: External appearance of nose and ears normal, oral cavity grossly normal. NECK: JVD unable to assess; masses not palpable. HEART: First and second heart sounds are normal; no edema. LUNGS: Respiratory rate normal; decreased breath sounds. ABDOMEN: Soft, nontender, liver spleen not palpable, no masses palpable. PSYCH: Answering simple questions NEUROLOGICAL: Cranial nerves grossly intact; no facial asymmetry, power and sensation grossly intact. Tremors at rest of present, including that of the body and head ABDOMEN: Bruising of the lower extremity the hands the face INVESTIGATIONS, reviewed in the clinical context: potassium 4.1 bun 20 creatinine 1.06 Previous testing White count 6.7 hemoglobin 12.8 potassium 5.3 bun 39 crit 1.3 to UA positive for leukoesterase WBC EKG-sinus rhythm first-degree heart block heart rate 46 Chest x-ray film personally reviewed by me-cardiomegaly and increased of chronic lung changes Computed tomography scan of the head cervical spine, had x-ray, tibia-fibula, no obvious fractures reported Urine culture-acute colitis Assessment: -Hypothermia from underlying UTI, improved -Acute UTI from cystitis, probably E. coli, causing hypothermia and possible sepsis -Right wilder-orbital, bruising from fall and trauma -Chronic essential tremor causing falls -Major cognitive impairment from underlying late onset Alzheimer's dementia -acuteRenal failure , prerenal Possible chronic kidney disease stage III from nephrosclerosis -Chronic gait dysfunction with a contribution from tremors -Hyperkalemia in the setting of renal failure -COPD -Chronic fibromyalgia -Essential hypertension -Primary osteoarthritis -Sjogren syndrome CODE STATUS DO NOT RESUSCITATE disposition: [facility] Patient Condition at Discharge: Stable Plan - Discharge Summary Discharge Rx Participant: No New Discharge Prescriptions: New Cephalexin [Keflex] 250 mg PO TID #9 cap QUEtiapine [SEROquel] 25 mg PO HS #30 tab Continue Rivaroxaban [Xarelto] 15 mg PO PC-SUPPER rOPINIRole HCL [Requip] 1 mg PO HS Albuterol Sulfate [Proair Hfa] 2 puff INHALATION RT-Q6H PRN PRN Reason: Shortness Of Breath Metoprolol Tartrate [Lopressor] 50 mg PO BID Furosemide [Lasix] 40 mg PO DAILY Atorvastatin Calcium [Lipitor] 20 mg PO HS traMADol HCL [Ultram] 50 mg PO TID Potassium Chloride [K-Tab ER] 20 meq PO DAILY Ipratropium-Albuterol Nebulize [Duoneb 0.5 mg-3 mg/3 ml Soln] 3 ml INHALATION RT-QID PRN PRN Reason: Shortness Of Breath Nystatin 100,000Unit/gm Cream [Mycostatin Cream] 1 applic TOPICAL DAILY PRN PRN Reason: Rash Discontinued Cholecalciferol [Vitamin D3] 2,000 unit PO DAILY Spironolactone [Aldactone] 25 mg PO DAILY Calcium Carb-Vit D 500Mg-200Un [Oscal 500+D] 1 tab PO DAILY Donepezil 23mg 23 mg PO HS ALPRAZolam [Xanax] 1 mg PO HS ALPRAZolam [Xanax] 0.5 mg PO AC-SUPPER Citalopram Hydrobromide [Citalopram HBr] 20 mg PO DAILY Discharge Medication List Albuterol Sulfate [Proair Hfa] 2 puff INHALATION RT-Q6H PRN 05/15/16 [History] Atorvastatin Calcium [Lipitor] 20 mg PO HS 05/15/16 [History] Furosemide [Lasix] 40 mg PO DAILY 05/15/16 [History] Ipratropium-Albuterol Nebulize [Duoneb 0.5 mg-3 mg/3 ml Soln] 3 ml INHALATION RT-QID PRN 05/15/16 [History] Metoprolol Tartrate [Lopressor] 50 mg PO BID 05/15/16 [History] Potassium Chloride [K-Tab ER] 20 meq PO DAILY 05/15/16 [History] Rivaroxaban [Xarelto] 15 mg PO PC-SUPPER 05/15/16 [History] rOPINIRole HCL [Requip] 1 mg PO HS 05/15/16 [History] traMADol HCL [Ultram] 50 mg PO TID 05/15/16 [History] Nystatin 100,000Unit/gm Cream [Mycostatin Cream] 1 applic TOPICAL DAILY PRN 12/11/19 [History] Cephalexin [Keflex] 250 mg PO TID #9 cap 12/15/19 [Rx] QUEtiapine [SEROquel] 25 mg PO HS #30 tab 12/15/19 [Rx] Follow up Appointment(s)/Referral(s): Jesus Longoria MD [Primary Care Provider] - 12/29/19 10:40 am [facility] Visiting Nurse, [NON-STAFF] - Patient Instructions/Handouts: Dehydration (DC), Urinary Tract Infection in Women (DC), Fall Prevention for Older Adults (DC) Activity/Diet/Wound Care/Special Instructions: Plan for discharge to [facility] Discharge Disposition: HOME WITH HOME HEALTH SERVICES
== END 2019-12-15 13:35 | disposition home health service (06) | DRG 872 ==
LOC: EC 17:18 → 6NMEDSUR 20:12 → 3SCARD 21:18 → 6NMEDSUR 12-14 22:52
PROVIDERS: ADMIT Hospitalist; ATTEND Hospitalist
DX: A41.51 Sepsis due to Escherichia coli [E. coli] (principal); N30.00 Acute cystitis without hematuria; E86.0 Dehydration; E87.5 Hyperkalemia; F02.80 Dementia in other diseases classified elsewhere, unspecified severity, without behavioral disturbance, psychotic disturbance, mood disturbance, and anxiety; G25.0 Essential tremor; G30.1 Alzheimer's disease with late onset; I12.9 Hypertensive chronic kidney disease with stage 1 through stage 4 chronic kidney disease, or unspecified chronic kidney disease; N18.3 Chronic kidney disease, stage 3 (moderate); I48.91 Unspecified atrial fibrillation; J44.9 Chronic obstructive pulmonary disease, unspecified; M19.91 Primary osteoarthritis, unspecified site; M35.00 Sjogren syndrome, unspecified; M79.7 Fibromyalgia; S01.119A Laceration without foreign body of unspecified eyelid and periocular area, initial encounter; W19.XXXA Unspecified fall, initial encounter; Z66 Do not resuscitate; Z79.01 Long term (current) use of anticoagulants; Z79.83 Long term (current) use of bisphosphonates; Z79.899 Other long term (current) drug therapy; Z85.828 Personal history of other malignant neoplasm of skin; Z86.73 Personal history of transient ischemic attack (TIA), and cerebral infarction without residual deficits; Z87.440 Personal history of urinary (tract) infections; Z95.2 Presence of prosthetic heart valve; Z96.649 Presence of unspecified artificial hip joint; T68.XXXA Hypothermia, initial encounter; R32 Unspecified urinary incontinence; R00.1 Bradycardia, unspecified; S60.222A Contusion of left hand, initial encounter; S60.221A Contusion of right hand, initial encounter; R26.81 Unsteadiness on feet; R45.1 Restlessness and agitation; Z88.8 Allergy status to other drugs, medicaments and biological substances; Z88.1 Allergy status to other antibiotic agents
CPT/HCPCS: 12013; 36415; 51701; 70450; 71046; 72125; 80048; 80053; 81001; 82550; 83605; 84484; 85025; 85610; 85730; 87040; 87077; 87086; 87186; 87502; 90471; 90715; 93005; 94760; 96365; 99285

== ENCOUNTER 2020-05-20 07:49 | Emergency (ER) | payer MEDICARE, BC ==
--- NOTE | 2020-05-20 08:03 | ED ---
Fall HPI - General Stated Complaint: Fall Time Seen by Provider: 05/20/20 07:49 Source: EMS, RN notes reviewed, old records reviewed - History of Present Illness Initial Comments: This is a 84-year-old female with a history of dementia and multiple other medical conditions including Sjogren syndrome hypertension CVA chronic A. fib COPD and mitral valve replacement who apparently slipped out of bed this morning was found sitting on the floor leaning against the bed. She is only awake alert oriented 1 which apparently is her normal mental status no injuries are reported except for some swelling to the left hand. The patient is a poor historian. No reports of fevers chills nausea vomiting sweats no focal deficits no other modifying factors. MD Complaint: fall - Related Data Home Medications Medication Instructions Recorded Confirmed Albuterol Sulfate [Proair Hfa] 2 puff INHALATION RT-Q6H PRN 05/15/16 05/20/20 Metoprolol Tartrate [Lopressor] 50 mg PO BID@0800,1730 05/15/16 05/20/20 Potassium Chloride [K-Tab ER] 20 meq PO DAILY 05/15/16 05/20/20 Rivaroxaban [Xarelto] 15 mg PO DAILY@1730 05/15/16 05/20/20 traMADol HCL [Ultram] 50 mg PO TID PRN 05/15/16 05/20/20 ALPRAZolam [Xanax] 1 mg PO QID PRN 05/20/20 05/20/20 Bumetanide 2 mg PO DAILY 05/20/20 05/20/20 Cholecalciferol [Vitamin D3 (25 2,000 unit PO DAILY 05/20/20 05/20/20 Mcg = 1000 Iu)] Cyanocobalamin (Vitamin B-12) 1,000 mcg PO DAILY 05/20/20 05/20/20 [Vitamin B-12] Divalproex ER [Depakote ER] 250 mg PO HS 05/20/20 05/20/20 Escitalopram [Lexapro] 20 mg PO HS 05/20/20 05/20/20 Memantine HCl/Donepezil HCl 1 tab PO BID 05/20/20 05/20/20 [Namzaric Titration Pack] QUEtiapine [SEROquel] 50 mg PO BID 05/20/20 05/20/20 busPIRone HCL 15 mg PO BID 05/20/20 05/20/20 traZODone HCL 50 mg PO HS 05/20/20 05/20/20 Allergies Allergy/AdvReac Type Severity Reaction Status Date / Time atenolol Allergy Rash/Hives Verified 05/20/20 08:38 bisacodyl Allergy Rash/Hives Verified 05/20/20 08:38 doxycycline Allergy Rash/Hives Verified 05/20/20 08:38 duloxetine HCl Allergy Rash/Hives Verified 05/20/20 08:38 [From Cymbalta] gabapentin Allergy Rash/Hives Verified 05/20/20 08:38 meperidine HCl [From Demerol] Allergy Rash/Hives Verified 05/20/20 08:38 polyethylene glycol 3350 Allergy Rash/Hives Verified 05/20/20 08:38 [From Halflytely-Bisacodyl w-Flav Pk] potassium chloride Allergy Rash/Hives Verified 05/20/20 08:38 [From Halflytely-Bisacodyl w-Flav Pk] prednisone Allergy Rash/Hives Verified 05/20/20 08:38 promethazine HCl Allergy Rash/Hives Verified 05/20/20 08:38 [From Phenergan] propranolol HCl Allergy Rash/Hives Verified 05/20/20 08:38 [From Inderal LA] sertraline HCl [From Zoloft] Allergy Rash/Hives Verified 05/20/20 08:38 sodium bicarbonate Allergy Rash/Hives Verified 05/20/20 08:38 [From Halflytely-Bisacodyl w-Flav Pk] sodium chloride Allergy Rash/Hives Verified 05/20/20 08:38 [From Halflytely-Bisacodyl w-Flav Pk] sulfacetamide Allergy Rash/Hives Verified 05/20/20 08:38 valacyclovir HCl Allergy Rash/Hives Verified 05/20/20 08:38 [From Valtrex] Review of Systems ROS Statement: Those systems with pertinent positive or pertinent negative responses have been documented in the HPI. ROS Other: All systems not noted in ROS Statement are negative. Limitations: ROS unobtainable due to patients medical condition Past Medical History Past Medical History: Atrial Fibrillation, Cancer, COPD, CVA/TIA, Deep Vein Thrombosis (DVT), Fibromyalgia, Hypertension, Osteoarthritis (OA) Additional Past Medical History / Comment(s): Tinea Cruris, Tietze's Disease, Sjogren's Syndrome, Hx of TIA's & DVT. History of Any Multi-Drug Resistant Organisms: None Reported Past Surgical History: Breast Surgery, Section, Joint Replacement, Orthopedic Surgery Additional Past Surgical History / Comment(s): Mitral Valve replacement, Hip Replacement, skin cancer, Arthroscopic Knee surgery, Breast bx. Past Anesthesia/Blood Transfusion Reactions: No Reported Reaction Past Psychological History: No Psychological Hx Reported Smoking Status: Never smoker Past Alcohol Use History: None Reported Additional Past Alcohol Use History / Comment(s): Drinks one glass of wine daily. Past Drug Use History: None Reported - Past Family History Mother Family Medical History: Cancer Additional Family Medical History / Comment(s): Unknown General Exam - General Exam Comments Initial Comments: Is a well-developed well-nourished awake alert elderly patient who appears be in no acute distress and is unable to answer questions Limitations: altered mental status General appearance: alert, in no apparent distress Head exam: Present: atraumatic, normocephalic, normal inspection Eye exam: Present: normal appearance, PERRL, EOMI. Absent: scleral icterus, conjunctival injection, periorbital swelling ENT exam: Present: normal exam, mucous membranes moist Neck exam: Present: normal inspection, full ROM, other (Stridor JVD or bruits). Absent: tenderness, meningismus, lymphadenopathy Respiratory exam: Present: normal lung sounds bilaterally. Absent: respiratory distress, wheezes, rales, rhonchi, stridor Cardiovascular Exam: Present: regular rate, normal rhythm, normal heart sounds, other (Audible heart valve sounds on auscultation). Absent: systolic murmur, diastolic murmur, rubs, gallop, clicks GI/Abdominal exam: Present: soft, normal bowel sounds. Absent: distended, tenderness, guarding, rebound, rigid Rectal exam: Present: deferred Extremities exam: Present: full ROM, tenderness (Tennis palpation of the right hip and left hand does appear to be somewhat edematous compared to the right no step-off or crepitation no obvious deformity possible tenderness), normal capillary refill. Absent: pedal edema, joint swelling, calf tenderness Back exam: Present: normal inspection Neurological exam: Present: alert, altered, CN II-XII intact, other (Patient appears to be at baseline per reports) Psychiatric exam: Present: normal affect, normal mood Skin exam: Present: warm, dry, intact, normal color. Absent: rash Course Vital Signs 05/20/20 05/20/20 07:50 09:20 Temperature 97.7 F Pulse Rate 79 87 Respiratory 16 18 Rate Blood Pressure 139/77 146/89 O2 Sat by Pulse 96 99 Oximetry Medical Decision Making - Medical Decision Making I did discuss the findings with the patient's daughter was present patient be discharged no evidence for any fractures. The ring was on the middle finger was removed by nursing staff at the request of the patient's daughter. - Radiology Data Radiology results: report reviewed (I did review the imaging and report no acute findings.), image reviewed Disposition Clinical Impression: Fall, Feared condition not demonstrated Disposition: HOME SELF-CARE Condition: Good Instructions (If sedation given, give patient instructions): Fall Prevention for Older Adults (ED) Is patient prescribed a controlled substance at d/c from ED?: No Referrals: Jesus Longoria MD [STAFF PHYSICIAN] - 1-2 days
--- NOTE | 2020-05-20 09:19 | XR ---
EXAMINATION TYPE: XR chest 2V DATE OF EXAM: 05/20/2020 COMPARISON: 12/11/2019 HISTORY: Shortness of breath TECHNIQUE: Frontal and lateral views of the chest are obtained. FINDINGS: Scattered senescent parenchymal changes noted. Hyperinflation compatible with COPD. No evidence for infiltrate. No evidence for atelectasis. Heart size is stable. Mediastinal structures are stable and grossly unremarkable. No evidence for hilar prominence. Degenerative changes dorsal spine. IMPRESSION: 1. No evidence for acute pulmonary disease.
--- NOTE | 2020-05-20 09:20 | XR ---
EXAMINATION TYPE: XR pelvis AP view DATE OF EXAM: 05/20/2020 CLINICAL HISTORY: pain TECHNIQUE: Single view the pelvis is submitted. FINDINGS: No evidence for acute fracture, dislocation or bony lesion. Healed fractures of the superi or and inferior pubic ramus. 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 Joint spaces are well-preserved. SI j oints appear symmetric. IMPRESSION: 1. No acute fracture or dislocation seen. ICD 10 NO FRACTURE, INITIAL EVALUATION
[2020-05-20 09:22] VITALS: RESP 18
--- NOTE | 2020-05-20 09:22 | XR ---
EXAMINATION TYPE: XR hand complete LT DATE OF EXAM: 05/20/2020 CLINICAL HISTORY: pain TECHNIQUE: Frontal, lateral and oblique images of the left hand are obtained. COMPARISON: None. FINDINGS: There is no acute fracture/dislocation evident. Severe joint space narrowing involving all PIP and DIP joints. Soft tissue swelling overlying the dorsum of the hand is nonspecific and could b e posttraumatic in nature. Diffuse bony osteopenia visualized. IMPRESSION: There is no acute fracture or dislocation. ICD 10 NO FRACTURE, INITIAL EVALUATION
--- NOTE | 2020-05-20 09:23 | XR ---
EXAMINATION TYPE: XR cervical spine comp DATE OF EXAM: 05/20/2020 CLINICAL HISTORY: pain COMPARISON: NONE TECHNIQUE: Frontal, lateral, oblique, swimmers, and open mouth view of the cervical spine are obtaine d. FINDINGS: The cervical spine is visualized in its entirety from C1 thru the top of T1 level. The pre -vertebral soft tissue appears within normal limits. Severe degenerative changes noted. The C1-C2 art iculation is unremarkable on the open mouth view. Multilevel foraminal encroachment. Curvature convex to the left. IMPRESSION: No acute fracture or dislocation is seen in the cervical spine. ICD 10 NO FRACTURE, INITIAL EVALUATION
[2020-05-20 10:17] VITALS: BP 139/120; PULSE 89; TEMP 97.6
== END 2020-05-20 10:24 | disposition home or self-care (01) ==
LOC: EC 07:49
DX: Z71.1 Person with feared health complaint in whom no diagnosis is made (principal); M79.89 Other specified soft tissue disorders; R41.82 Altered mental status, unspecified; J44.9 Chronic obstructive pulmonary disease, unspecified; I48.91 Unspecified atrial fibrillation; M79.7 Fibromyalgia; I10 Essential (primary) hypertension; M19.90 Unspecified osteoarthritis, unspecified site; F03.90 Unspecified dementia, unspecified severity, without behavioral disturbance, psychotic disturbance, mood disturbance, and anxiety; M35.00 Sjogren syndrome, unspecified; Z79.899 Other long term (current) drug therapy; Z88.8 Allergy status to other drugs, medicaments and biological substances; Z88.2 Allergy status to sulfonamides; Z88.3 Allergy status to other anti-infective agents; Z88.5 Allergy status to narcotic agent; Z88.1 Allergy status to other antibiotic agents; Z86.718 Personal history of other venous thrombosis and embolism; Z86.73 Personal history of transient ischemic attack (TIA), and cerebral infarction without residual deficits; Z95.2 Presence of prosthetic heart valve; Z85.828 Personal history of other malignant neoplasm of skin; Z96.649 Presence of unspecified artificial hip joint; W06.XXXA Fall from bed, initial encounter; Y93.89 Activity, other specified; Y92.009 Unspecified place in unspecified non-institutional (private) residence as the place of occurrence of the external cause
CPT/HCPCS: 71046; 72050; 72170; 99284